=== PATIENT | female | born 1945 | race Two or more races ===

== ENCOUNTER 2017-10-07 10:43 | Outpatient (CLI) | payer OTHER ==
[~2017-10-07 10:43] MED LIST: ASA81 MG PO; Cordarone 200 MG TAB PO; FAMOTIDINE20 MG PO; FERRO-TIME325 MG PO; FOLIC ACID1 MG PO; FUROSEMIDE10 MG/M1 IV; GLUCOPHAGE XR500 MG PO; HUMALOG100 UNIT/1; LANTUS SOL100 UNIT/1; LASIX20 MG PO; NABUMETONE750 MG PO; NITROSTAT0.4 MG SL; XARELTO20 MG PO; ZOCOR20 MG PO
== END 2017-10-07 10:57 | disposition home or self-care (01) ==
LOC: NUCLEAR 10:43
DX: I50.32 Chronic diastolic (congestive) heart failure (principal); R60.0 Localized edema